=== PATIENT | female | born 1955 | race Caucasian/White ===

== ENCOUNTER → 2020-03-12 | Outpatient (CLI) | payer MEDICARE, MEDICAID ==
[~2020-03-12] MED LIST: BACL-19 PO; BUPR150T6 PO; ERGO500017 PO; ESCI20TA PO; GABA800T PO; LIDOCAINE 1%, 20ML ONE; SODIUM BICARBONATE 4.2%, 5ML ONE; TIZA4CAP PO; TRAM50TA2 PO; TRAZ-175 PO
== END | disposition home or self-care (01) ==
LOC: CFH 09:54
PROVIDERS: ATTEND Surgery
DX: C50.311 Malignant neoplasm of lower-inner quadrant of right female breast (principal); Z17.0 Estrogen receptor positive status [ER+]; Z79.899 Other long term (current) drug therapy; Z87.891 Personal history of nicotine dependence; Z88.8 Allergy status to other drugs, medicaments and biological substances
CPT/HCPCS: 19285; 77065

== ENCOUNTER 2020-03-14 05:28 | Day surgery (SDC) | payer MEDICARE, MEDICAID ==
[~2020-03-14] VITALS: Ht 163.8 cm; Wt 97.6 kg
[2020-03-14 07:35] VITALS: BP 168/89
[2020-03-14] MEDS ORDERED: LACTATED RINGERS 1,000 ML IV STA (08:03)
[2020-03-14] MEDS ORDERED: CHLORHEXIDINE 15 ML UDC MM STA (08:03)
[2020-03-14] MEDS ORDERED: BUPR150T6 PO (08:07)
[2020-03-14] MEDS ORDERED: TRAZ-175 PO (08:07)
[2020-03-14] MEDS ORDERED: TIZA4CAP PO (08:07)
[2020-03-14] MEDS ORDERED: ESCI20TA PO (08:07)
[2020-03-14] MEDS ORDERED: GABA800T PO (08:07)
[2020-03-14] MEDS ORDERED: BACL-19 PO (08:07)
[2020-03-14] MEDS ORDERED: ERGO500017 PO (08:07)
[2020-03-14] MEDS ORDERED: CHLORHEXIDINE 15 ML UDC ONE (08:10)
[2020-03-14 08:37] LABS: BASOPHILS % (AUTO) 1 % (0-1); EOSINOPHILS % (AUTO) 4 % (1-7); LYMPHOCYTES % (AUTO) 36 % (22-44); MEAN CORPUSCULAR HEMOGLOBIN 31.3 pg (27.0-34.8); MEAN CORPUSCULAR HGB CONC 33.1 g/dL (32.4-35.8); MEAN PLATELET VOLUME 8.7 fL (7.4-10.4); MONOCYTES % (AUTO) 7 % (2-9); NEUTROPHILS % (AUTO) 52 % (42-75); PLATELET COUNT 192 x10^3/uL (130-400); RED BLOOD COUNT 4.62 x10^6/uL (3.82-5.3); RED CELL DISTRIBUTION WIDTH 14.1 % (9.6-15.2)
[2020-03-14 08:40] LABS: MD NO
[2020-03-14 08:47] LABS: INTERNATIONAL NORMALIZED RATIO 0.95 (0.93-1.1); PROTHROMBIN TIME 10.1 Seconds (9.6-11.5)
[2020-03-14 08:51] LABS: ALANINE AMINOTRANSFERASE 19 U/L (12-78); ALBUMIN 3.6 g/dL (3.4-5.0); ANION GAP 5 mmol/L (5-15); CALCIUM 8.8 mg/dL (8.5-10.1); CHLORIDE 109 mmol/L (98-107)
[2020-03-14 08:54] LABS: ALKALINE PHOSPHATASE 117 U/L (45-117); BILIRUBIN,TOTAL 0.4 mg/dL (0.2-1.0); CREATININE 1.03 mg/dL (0.55-1.02); TOTAL PROTEIN 7.3 g/dL (6.4-8.2)
[2020-03-14] MEDS ORDERED: LACTATED RINGERS 1,000 ML IV ONE (09:00)
[2020-03-14] MEDS ORDERED: LIDOCAINE-MPF 1%, 5ML ONE (09:04)
[2020-03-14] MEDS ORDERED: FENTANYL PF 100 MCG/2ML ONE ×2 (09:59→12:58)
[2020-03-14] MEDS ORDERED: MIDAZOLAM 1 MG/ML, 2ML ONE (09:59)
[2020-03-14] MEDS ORDERED: BUPIVACAINE/PF 0.5% ONE (10:49)
[2020-03-14] MEDS ORDERED: EPINEPHRINE 1 MG/ML, 1ML ONE (10:49)
[2020-03-14] MEDS ORDERED: CEFAZOLIN 1,000 MG ONE (11:12)
[2020-03-14] MEDS ORDERED: PROPOFOL 10 MG/ML, 20ML ONE (11:12)
[2020-03-14] MEDS ORDERED: SUCCINYLCHOLINE 20 MG/ML, 10ML ONE (11:12)
[2020-03-14] MEDS ORDERED: ONDANSETRON 2MG/ML, 2ML ONE (11:12)
[2020-03-14] MEDS ORDERED: KETOROLAC 30 MG/1 ML ONE (11:12)
[2020-03-14] MEDS ORDERED: DEXAMETHASONE 4 MG/ML, 1ML ONE (11:12)
[2020-03-14] MEDS ORDERED: LIDOCAINE-MPF 1%, 2ML ONE (11:12)
[2020-03-14] MEDS ORDERED: ROCURONIUM 10MG/ML,5ML ONE (11:12)
[2020-03-14] MEDS ORDERED: OXYcodone 5 MG/5 ML ORAL.SOL UDC PO PRN (12:00)
[2020-03-14] MEDS ORDERED: MEPERIDINE/PF 25MG/0.5ML IVPush PRN (12:00)
[2020-03-14] MEDS ORDERED: ALBUTEROL SULFATE 2.5 MG/3 ML NPPB PRN (12:00)
[2020-03-14] MEDS ORDERED: hydrALAzine 20 MG/ML, 1ML IV PRN (12:00)
[2020-03-14] MEDS ORDERED: METHOCARBAMOL 1,000 MG in DEXTROSE 5% 100 ML IV PRN (12:00)
[2020-03-14] MEDS ORDERED: PROMETHAZINE 25 MG/ML, 1ML IVPush PRN (12:00)
[2020-03-14] MEDS ORDERED: ACETAMINOPHEN 325 MG TABLET PO PRN (12:00)
[2020-03-14] MEDS ORDERED: LORazepam 2 MG/ML, 1ML IVPush PRN (12:00)
[2020-03-14] MEDS ORDERED: HYDROmorphone 1 MG/ML, 1ML INJ IVPush PRN (12:00)
[2020-03-14] MEDS ORDERED: LABETALOL 5MG/ML, 20ML IV PRN (12:00)
[2020-03-14] MEDS ORDERED: ACETAMINOPHEN 650 MG/20.3 ML UDC ONE (12:57)
[2020-03-14] MEDS ORDERED: OXYcodone 5 MG/5 ML ORAL.SOL UDC ONE (12:58)
[2020-03-14] MEDS: FENTANYL PF 100 MCG/2ML IV PRN ×3 (13:10→13:24)
[2020-03-14] MEDS ORDERED: TRAM50TA2 PO (14:12)
== END 2020-03-14 14:35 | disposition home or self-care (01) ==
LOC: OUT 05:28 → EDSTATUS 10:30 → OUT 14:35
PROVIDERS: ATTEND Surgery
DX: C50.311 Malignant neoplasm of lower-inner quadrant of right female breast (principal); I10 Essential (primary) hypertension; G47.33 Obstructive sleep apnea (adult) (pediatric); E66.9 Obesity, unspecified; Z17.0 Estrogen receptor positive status [ER+]; Z20.828 Contact with and (suspected) exposure to other viral communicable diseases; Z68.35 Body mass index [BMI] 35.0-35.9, adult; Z79.01 Long term (current) use of anticoagulants; Z79.899 Other long term (current) drug therapy; Z87.891 Personal history of nicotine dependence; Z88.2 Allergy status to sulfonamides; Z88.8 Allergy status to other drugs, medicaments and biological substances; Z90.710 Acquired absence of both cervix and uterus; Z98.890 Other specified postprocedural states
CPT/HCPCS: 19301; 36415; 38525; 38792; 76098; 80053; 85025; 85610; 87635; 88305; 88307; 88342; 93005; A9541; C1729; C9898; J0171; J0330; J0690; J1100; J1885; J2250; J2405; J2704; J3010; J7120